=== PATIENT | female | born 1930 | race African-American/Black ===

== ENCOUNTER → 2016-08-20 | Outpatient (CLI) | payer OTHER ==
[~2016-08-20] MED LIST: ADULT LOW DOSE81 MG PO; ALBUTEROL INHAL17 GM IH; ALBUTEROL2.5 MG/31 IH; AMLODIPINE BESYL5 MG PO; ANTIVERT25 MG PO; APAP500 PO; ASPIR 8181 MG PO; ASPIRIN325 PO; ATACAND HCT 321 EACH PO; ATACAND PO; ATACAND32 MG PO; AUGMENTIN 875875 MG PO; AVAPRO300 MG PO; AVELOX 400 MG400 MG PO; AVELOX ABC PAC400 MG PO; BENZONATATE200 MG PO; CATAPRES0.2 MG PO; COLCHICINE 0.60.6 M1 PO; COZAAR 50 MG TA50 M1 PO; COZAAR 50 MG TA50 M2 PO; DEEP SEA NASAL44 ML NS; DUONEB 2.5-0.5 M3 ML INH; HCTZ PO; HYDRALAZINE 2525 MG PO; HYDROCHLOROTHIA25 M1 PO; INDAPAMIDE1.25 MG PO; ISRADIPINE5 MG PO; K-DUR10 ME1 PO; KLOR-CON 10 ER10 MEQ PO; LASIX 40 MG TAB40 M1 PO; LASIX 40 MG TAB40 M2 PO; LEVAQUIN 500 M500 M2 PO; LIDODERM 5%1 PATCH TOP; LIPITOR10 MG PO; MEDROLDOSEPACK PO; MEVACOR40 MG PO; MILK OF MA400 MG/5 M PO; MIRALAX17 GM PO; MUCINEX TA600 MG/TAB PO; MUCINEX600 MG PO; NASAL SPRAY ORI30 ML NS; NASAL SPRAY30 ML NS; NASOCORT; NEURONTIN 300300 M1 PO; NEURONTIN 300M300 M2 PO; NEURONTIN600 MG PO; NORCO 5-325 TA1 EACH PO; PAXIL10 MG; PERCOCET 5-3251 EACH PO; PREDNISONE; PREDNISONE 10 M10 MG PO; PREDNISONE 20 M20 MG PO; PREDNISONE 5 MG5 M1 PO; PREDNISONE50 MG PO; PROAIR HFA8.5 GM INH; PROTONIX40 M1 PO; SULFACETAMIDE 115 M1 INTRAOCULR; SYMBICORT160 MCG/4. INH; TESSALON200 MG PO; TUSSIONEX PENNKI1 ML PO; VALTREX1000 MG PO; XARELTO15 MG PO; ZOCOR 20 MG TAB20 M1 PO; ZOFRAN ODT4 MG PO
== END ==
LOC: RAD 10:20
DX: M19.042 Primary osteoarthritis, left hand (principal); M19.041 Primary osteoarthritis, right hand

== ENCOUNTER 2016-09-14 12:15 | Emergency (ER) | payer OTHER ==
[~2016-09-14] VITALS: Ht 165.1 cm; Wt 91.2 kg
[2016-09-14] MEDS ORDERED: ALDACTONE50 MG PO (13:37)
[2016-09-14] MEDS ORDERED: ATORVASTATIN CA40 MG PO (13:38)
[2016-09-14] MEDS ORDERED: BACTRIM DS TAB1 EACH PO (14:35)
[2016-09-14 15:15] VITALS: BP 160/65
== END 2016-09-14 15:26 | disposition home or self-care (01) ==
LOC: ER 12:15
DX: L02.612 Cutaneous abscess of left foot (principal); J44.9 Chronic obstructive pulmonary disease, unspecified; G47.30 Sleep apnea, unspecified; I10 Essential (primary) hypertension; E78.5 Hyperlipidemia, unspecified; Z88.5 Allergy status to narcotic agent

== ENCOUNTER → 2017-02-10 | Outpatient (CLI) | payer OTHER ==
[~2017-02-10] MED LIST changes: +ALDACTONE50 MG PO; +ATORVASTATIN CA40 MG PO; +BACTRIM DS TAB1 EACH PO
== END ==
LOC: RAD 11:59
DX: J44.1 Chronic obstructive pulmonary disease with (acute) exacerbation (principal); J45.901 Unspecified asthma with (acute) exacerbation

== ENCOUNTER 2017-07-08 14:31 | Inpatient (IN) | payer OTHER ==
[~2017-07-08] VITALS: Ht 165.1 cm; Wt 91.6 kg
--- NOTE | ~2017-07-08 | 2DMMODE ---
[facility] [place] [address] 2 D/M-MODE ECHOCARDIOGRAM Name: JONELLE DOUGLAS Room #: 409-P ADM IN .R.#: [id number] Admission: 07/08/17 Attend Phys: Naren Rivera, Discharge: Date of : 34 Date of Service: 07/09/17 1025 Report #: [id number] THIS REPORT FOR: //name// APPROVED REPORT Study performed: 07/09/2017 07:15:46 EXAM: Comprehensive 2D, Doppler, and color-flow Echocardiogram Patient Location: Bedside Status: routine BSA: 1.99 HR: 74 bpm BP: 180/52 mmHg Rhythm: NSR/Irregular Other Information Study Quality: Good Indications Elevated BNP, Short of breath. Hx: Afib, COPD, HTN, HLP 2D Dimensions RVDd: 39.96 mm LVEF(%): 50.98 (>50%) IVSd: 14.08 (7-11mm) LVOT Diam: 21.13 (18-24mm) LVDd: 46.53 mm PWd: 14.58 (7-11mm) LVDs: 34.47 (25-40mm) Aortic Root: 32.89 mm Robles's LVEF: 50.98 % Volumes Left Atrial Volume (Systole) Single Plane 4CH: 83.22 mL Single Plane 2CH: 90.06 mL LA ESV Index: 47.00 mL/m2 Aortic Valve AoV Peak Víctor.: 3.44 m/s AO Peak Gr.: 47.38 mmHg LVOT Max P.79 mmHg AO Mean Gr.: 22.20 mmHg AO V2 Mean: 2.14 m/s LVOT Max V: 1.20 m/s AO V2 VTI: 68.96 cm SUNIL Vmax: 1.22 cm2 Mitral Valve [facility] [place] [address] 2 D/M-MODE ECHOCARDIOGRAM Name: [facility] Room #: 409-P ADM IN M.R.#: [id number] Admission: 07/08/17 Attend Phys: Naren Rivera, Discharge: Date of : 34 Date of Service: 07/09/17 1025 Report #: [id number] E/A Ratio: 0.8 MV Decel. Time: 215.14 ms MV E Max Víctor.: 1.12 m/s MV A Víctor.: 1.49 m/s MV PHT: 62.39 ms IVRT: 87.66 ms Pulmonary Valve PV Peak Víctor.: 1.46 m/s PV Peak Gr.: 8.54 mmHg Tricuspid Valve TR Peak Víctor.: 3.53 m/s RAP Estimate: 5.00 mmHg TR Peak Gr.: 49.81 mmHg PA Pressure: 55.00 mmHg Left Ventricle The left ventricle is normal size. There is normal LV segmental wall motion. Moderate concentric left ventricular hypertrophy. Left ventricular systolic function is normal. LVEF is 65%. Mild diastolic dysfunction is present (impaired relaxation pattern). Right Ventricle The right ventricle is normal size. The right ventricular systolic function is normal. Atria Left atrium is moderately dilated. Right atrium is mildly dilated. Aortic Valve Aortic valve is moderately calcified. No aortic regurgitation is present. There is moderate valvular aortic stenosis. Calculated aortic valve area is 1.2 cm2 with maximum pressure gradient of 47 mmHg and mean pressure gradient of 22 mmHg. Mitral Valve Mitral valve leaflets are mildly thickened and calcified. Moderate mitral annular calcification. Mild to moderate mitral regurgitation. Tricuspid Valve The tricuspid valve is normal in structure. Mild tricuspid regurgitation. Estimated PAP is 55mmHg. Pulmonic Valve The pulmonary valve is normal in structure. Trace pulmonic [facility] [address] [place] [address] 2 D/M-MODE ECHOCARDIOGRAM Name: JONELLE DOUGLAS Room #: 409-P [facility] IN ..#: [id number] Admission: 07/08/17 Attend Phys: Naren Rivera, Discharge: Date of : 34 Date of Service: 07/09/17 1025 Report #: [id number] regurgitation. Great Vessels The aortic root is normal in size. IVC is normal in size and collapses >50% with inspiration. Pericardium There is no pericardial effusion. <Conclusion> The left ventricle is normal size. Moderate concentric left ventricular hypertrophy. Left ventricular systolic function is normal. Mild diastolic dysfunction is present (impaired relaxation pattern). The right ventricle is normal size. Left atrium is moderately dilated. Right atrium is mildly dilated. There is moderate valvular aortic stenosis. Moderate mitral annular calcification. Mild to moderate mitral regurgitation. Mild tricuspid regurgitation. Estimated PAP is 55mmHg. <ELECTRONICALLY SIGNED> By: Jamey Earl MD 07/09/17 1025 1025 1025 Jamey Earl MD /INF
--- NOTE | ~2017-07-08 | EKG ---
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1930 Requested By: Nilson Womack Order Number: [id number] MD: Matt Hester Measurements Intervals [place] Rate: 75 P: -55 SD: 251 QRS: -12 QRSD: 91 T: 138 QT: 395 QTc: 442 Interpretive Statements Sinus rhythm Multiple premature complexes, vent & supraven Prolonged SD interval LVH with secondary repolarization abnormality Compared to ECG 01/23/2016 13:46:12 Atrial fibrillation no longer present Electronically Signed On 07-08-2017 17:38:51 CDT by Matt Hester [email or web address] <ELECTRONICALLY SIGNED> By: Matt Hester MD, [facility] 07/08/17 1738 1508 1508 Matt Hester MD, [facility] /EPI
[2017-07-08 14:33] VITALS: BP 172/67
[2017-07-08 15:31] LABS: ABSOLUTE NEUTROPHILS 7.5 thou/uL (1.4-8.2); BASOPHILS 0.7 % (0.0-2.0); EOSINOPHILS 5.2 % (0.0-3.0); HEMATOCRIT 28.6 % (37.0-47.0); HEMOGLOBIN 9.5 gm/dL (12.0-15.0); LYMPHOCYTES 10.6 % (24.0-44.0); MCH 29.7 pg (26.0-34.0); MCHC 33.1 g/dL (28.0-37.0); MCV 89.6 fL (80.0-100.0); MONOCYTES 8.5 % (1.0-8.0); PLATELET COUNT 249 thou/uL (150-400); RBC 3.19 mil/uL (4.20-5.00); RDW 14.9 % (10.5-14.5)
[2017-07-08 15:37] LABS: ANION GAP 12 mmol/L (7-16); BUN 27 mg/dL (7-18); CALCIUM 9.8 mg/dL (8.5-10.1); CHLORIDE 102 mmol/L (98-107); CO2 24 mmol/L (21-32); CREATININE 1.3 mg/dL (0.6-1.0); GLUCOSE 85 mg/dL (74-106); POTASSIUM 4.6 mmol/L (3.5-5.1); SODIUM 138 mmol/L (136-145)
[2017-07-08 15:43] LABS: TROPONIN-I < 0.04 ng/mL (<0.06)
[2017-07-08 17:59] LABS: HDL CHOLESTEROL 57 mg/dL (>40); LDL CHOLESTEROL 81 mg/dL (<100); TC:HDL 2.7 Ratio (Not establshd); TRIGLYCERIDE 92 mg/dL (<150); VLDL 18 mg/dL (<40)
[2017-07-08 18:06] VITALS: BP 163/65
[2017-07-08 18:10] LABS: SERUM ASSESSMENT Clear
[2017-07-08 18:23] LABS: TSH 1.536 uIU/mL (0.358-3.740)
[2017-07-08 18:37] VITALS: BP 163/65
[2017-07-08 18:52] LABS: CHOLESTEROL 186 mg/dL (<200)
[2017-07-08 21:04] VITALS: BP 181/68
[2017-07-09] VITALS: BP 137/50
[2017-07-09 05:27] VITALS: BP 180/52
[2017-07-09 07:49] VITALS: BP 155/68
[2017-07-09 17:05] VITALS: BP 191/87
[2017-07-09 19:39] VITALS: BP 185/72
[2017-07-10 04:56] LABS: ABSOLUTE NEUTROPHILS 7.2 thou/uL (1.4-8.2); BASOPHILS 0.6 % (0.0-2.0); EOSINOPHILS 7.9 % (0.0-3.0); HEMATOCRIT 29.1 % (37.0-47.0); HEMOGLOBIN 9.4 gm/dL (12.0-15.0); LYMPHOCYTES 8.4 % (24.0-44.0); MCH 29.2 pg (26.0-34.0); MCHC 32.3 g/dL (28.0-37.0); MCV 90.5 fL (80.0-100.0); MONOCYTES 9.4 % (1.0-8.0); PLATELET COUNT 254 thou/uL (150-400); POLYS 73.7 % (36.0-66.0); RBC 3.21 mil/uL (4.20-5.00); WBC 9.7 thou/uL (4.0-11.0)
[2017-07-10 05:01] LABS: CALCIUM 9.6 mg/dL (8.5-10.1); CREATININE 1.7 mg/dL (0.6-1.0); POTASSIUM 4.8 mmol/L (3.5-5.1)
[2017-07-10 05:49] VITALS: BP 161/69
[2017-07-10 17:54] VITALS: BP 181/71
[2017-07-10 20:00] VITALS: BP 187/83
[2017-07-11 04:28] LABS: ABSOLUTE NEUTROPHILS 5.9 thou/uL (1.4-8.2); BASOPHILS 0.5 % (0.0-2.0); EOSINOPHILS 8.1 % (0.0-3.0); HEMATOCRIT 25.6 % (37.0-47.0); HEMOGLOBIN 8.3 gm/dL (12.0-15.0); LYMPHOCYTES 8.2 % (24.0-44.0); MCH 29.5 pg (26.0-34.0); MCHC 32.6 g/dL (28.0-37.0); MCV 90.4 fL (80.0-100.0); MONOCYTES 9.5 % (1.0-8.0); PLATELET COUNT 239 thou/uL (150-400); POLYS 73.7 % (36.0-66.0); RBC 2.83 mil/uL (4.20-5.00); RDW 14.9 % (10.5-14.5)
[2017-07-11 04:41] LABS: CALCIUM 9.2 mg/dL (8.5-10.1); CREATININE 1.4 mg/dL (0.6-1.0); POTASSIUM 4.3 mmol/L (3.5-5.1)
[2017-07-11 06:09] VITALS: BP 150/82
[2017-07-11 07:22] VITALS: BP 181/71
[2017-07-11 19:40] VITALS: BP 177/80
[2017-07-12] VITALS: BP 184/81
[2017-07-12 07:40] VITALS: BP 169/79
[2017-07-12 09:29] VITALS: BP 184/81
[2017-07-12 09:49] VITALS: BP 184/81
== END 2017-07-12 12:35 | disposition home health service (06) | DRG 189 ==
LOC: ER 14:31 → EROBS 17:01 → 4N 17:01 → SICU 07-11 15:06 → ENTRNSPT 07-12 12:20 → EDTRNSPTSTS 07-12 12:22 → SICU 07-12 12:35
PROVIDERS: Emergency Medicine; Family Medicine; Nurse Practitioner
DX: J96.21 Acute and chronic respiratory failure with hypoxia (principal); N17.9 Acute kidney failure, unspecified; J44.9 Chronic obstructive pulmonary disease, unspecified; E78.5 Hyperlipidemia, unspecified; I48.0 Paroxysmal atrial fibrillation; I27.20 Pulmonary hypertension, unspecified; I11.0 Hypertensive heart disease with heart failure; Z66 Do not resuscitate; I50.9 Heart failure, unspecified; G47.33 Obstructive sleep apnea (adult) (pediatric); Z79.82 Long term (current) use of aspirin; Z88.6 Allergy status to analgesic agent; Z79.899 Other long term (current) drug therapy
CPT/HCPCS: 10790; 15002

== ENCOUNTER → 2017-07-15 | Outpatient (CLI) | payer OTHER | LOC: RAD 11:13 | DX: J44.1 Chronic obstructive pulmonary disease with (acute) exacerbation (principal); M13.88 Other specified arthritis, other site; I51.7 Cardiomegaly; I89.8 Other specified noninfective disorders of lymphatic vessels and lymph nodes; R91.8 Other nonspecific abnormal finding of lung field ==

== ENCOUNTER 2017-07-29 13:07 | Emergency (ER) | payer OTHER ==
[~2017-07-29] VITALS: Ht 165.1 cm; Wt 89.8 kg
--- NOTE | ~2017-07-29 | EKG ---
[place] [address] [facility] [place] [address] ELECTROCARDIOGRAM REPORT Name: JONELLE DOUGLAS Room #: 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[facility] : 1930 Requested By: Alexy Sigala Order Number: [id number] MD: Matt Hester Measurements Intervals [place] Rate: 69 P: 26 ME: 276 QRS: -12 QRSD: 95 T: 144 QT: 442 QTc: 474 Interpretive Statements Sinus rhythm Atrial premature complexes Prolonged ME interval LVH with secondary repolarization abnormality Compared to ECG 07/08/2017 15:08:30 No significant change was found Electronically Signed On 07-29-2017 17:32:40 CDT by Matt Hester [email or web address] <ELECTRONICALLY SIGNED> By: Matt Hester MD, [facility] 07/29/17 1732 31 31 Matt Hester MD, [facility] /EPI
[2017-07-29 13:43] LABS: ABSOLUTE NEUTROPHILS 4.8 thou/uL (1.4-8.2); BASOPHILS 0.9 % (0.0-2.0); EOSINOPHILS 4.3 % (0.0-3.0); HEMATOCRIT 27.7 % (37.0-47.0); LYMPHOCYTES 11.3 % (24.0-44.0); MCH 29.9 pg (26.0-34.0); MCHC 32.4 g/dL (28.0-37.0); MCV 92.4 fL (80.0-100.0); MONOCYTES 9.1 % (1.0-8.0); PLATELET COUNT 197 thou/uL (150-400); POLYS 74.4 % (36.0-66.0); RDW 16.7 % (10.5-14.5); WBC 6.4 thou/uL (4.0-11.0)
[2017-07-29 13:52] LABS: ANION GAP 10 mmol/L (7-16); BUN 28 mg/dL (7-18); CALCIUM 9.4 mg/dL (8.5-10.1); CHLORIDE 106 mmol/L (98-107); CO2 25 mmol/L (21-32); CREATININE 1.4 mg/dL (0.6-1.0); GLUCOSE 116 mg/dL (74-106); POTASSIUM 4.1 mmol/L (3.5-5.1); SODIUM 141 mmol/L (136-145)
[2017-07-29 14:02] LABS: TROPONIN-I < 0.04 ng/mL (<0.06)
[2017-07-29] MEDS ORDERED: LASIX 20 MG TAB20 MG PO (15:01)
[2017-07-29 15:17] VITALS: BP 164/59
== END 2017-07-29 15:18 | disposition home or self-care (01) ==
LOC: ER 13:07
PROVIDERS: Nurse Practitioner
DX: R42 Dizziness and giddiness (principal); R53.1 Weakness; J44.9 Chronic obstructive pulmonary disease, unspecified; G47.30 Sleep apnea, unspecified; I10 Essential (primary) hypertension; F17.210 Nicotine dependence, cigarettes, uncomplicated; Z88.5 Allergy status to narcotic agent; Z79.82 Long term (current) use of aspirin